=== PATIENT | female | born 1990 | race Caucasian/White ===

== ENCOUNTER 2016-11-16 20:11 | Emergency (ER) | payer MEDICAID, OTHER ==
[~2016-11-16] VITALS: Ht 160 cm; Wt 74.8 kg
[~2016-11-16 20:11] MED LIST: FERROUS SULFAT325 MG PO; MOTRIN600 MG PO; PRENATAL VITAMI1 T10 PO; ZOFRAN ODT4 MG PO
[2016-11-16 20:29] VITALS: BP 109/71
--- NOTE | 2016-11-16 21:40 | NUR ---
AMBULATED TO ER BED 6
--- NOTE | 2016-11-16 21:51 | NUR ---
PATIENT PRESENTS TO ED WITH LEFT SIDE ABD PAIN . PT DENIES N/V/D; SKIN IS PINK/WARM/DRY; AAOX4 WITH EVEN AND STEADY GAIT; LUNGS CLEAR BL; HR EVEN AND REGULAR; PT DENIES ANY FEVER, CP, SOB, OR COUGH AT THIS TIME; PATIENT STATES PAIN OF 2/10 AT THIS TIME; VSS; PATIENT POSITIONED FOR COMFORT; HOB ELEVATED; BEDRAILS UP X2; BED DOWN. ER MD MADE AWARE OF PT STATUS.
--- NOTE | 2016-11-16 22:57 | NUR ---
Patient discharged with v/s stable. Written and verbal after care instructions given and explained. Patient verbalized understanding. Ambulatory with steady gait. All questions addressed prior to discharge. Advised to follow up with PMD.
[2016-11-16 22:58] VITALS: BP 109/71
== END 2016-11-16 22:58 | disposition home or self-care (01) ==
LOC: MED 20:11
DX: K21.9 Gastro-esophageal reflux disease without esophagitis (principal)

== ENCOUNTER 2017-12-27 19:58 | Emergency (ER) | payer SELFPAY ==
[~2017-12-27] VITALS: Ht 165.1 cm; Wt 76.7 kg
[~2017-12-27 19:58] MED LIST changes: +FERR325E14 PO; -FERROUS SULFAT325 MG PO; +IBUP-2213 PO; -MOTRIN600 MG PO; +PREN-385 PO; -PRENATAL VITAMI1 T10 PO; -ZOFRAN ODT4 MG PO
[2017-12-27 20:20] VITALS: BP 112/76
--- NOTE | 2017-12-27 20:30 | NUR ---
Pt presents to ED after dog attack. Pt states she was walking near home with her child when a pit bull saw them and charged at the Pt. Pt tried to run but dog cough her and bit her on the right thiegh. 1cm puncte noted. No bleeding or discharge noted. VSS. Pain 11/27. ER MD aware. Continue to monitor.
--- NOTE | 2017-12-27 20:31 | NUR ---
PT AMBULATED TO ER BED 01
[2017-12-27] MEDS ORDERED: AMOXIL/CLAVULANATE 875/125 MG 1 TAB ONE (21:27)
[2017-12-27] MEDS: AMOXIL/CLAVULANATE 875/125 MG 1 TAB PO ONE (21:34)
[2017-12-27 22:05] VITALS: BP 112/76
--- NOTE | 2017-12-27 22:05 | NUR ---
Patient discharged with v/s stable. Written and verbal after care instructions given and explained. Patient alert, oriented and verbalized understanding of instructions. Ambulatory with steady gait. All questions addressed prior to discharge. ID band removed. Patient advised to follow up with PMD. Rx of Augmentin and Bacitracin given. Patient educated on indication of medication including possible reaction and side effects. Opportunity to ask questions provided and answered.
--- NOTE | 2017-12-27 22:40 | NUR ---
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
== END 2017-12-27 22:05 | disposition home or self-care (01) ==
LOC: MED 19:58
DX: S71.131A Puncture wound without foreign body, right thigh, initial encounter (principal); Z79.899 Other long term (current) drug therapy; W54.0XXA Bitten by dog, initial encounter; Y93.89 Activity, other specified; Y92.89 Other specified places as the place of occurrence of the external cause; Y99.8 Other external cause status
CPT/HCPCS: 90471; 90715; 99283

== ENCOUNTER 2018-04-11 19:54 | Emergency (ER) | payer MEDICAID, OTHER ==
[~2018-04-11] VITALS: Ht 165.1 cm; Wt 73.9 kg
[2018-04-11 20:06] VITALS: BP 122/71
--- NOTE | 2018-04-11 20:10 | NUR ---
TO LOBBY A/W BED, VILMA SALAZAR, RACHEL NOTED
--- NOTE | 2018-04-11 20:31 | NUR ---
PT TAKEN TO BED 4
--- NOTE | 2018-04-11 20:35 | NUR ---
27/F CAME IN ED WITH FAMILY, C/O 04/26 INTERMITTENT CRAMPING LOWER ABD PAIN, NONRADIATING, EXACERBATED BY ACTIVITY/WALKING, RELIEVED BY REST. LMP 01/09/18, PT IS 8 WEEKS . PT REPORTS N/V. PT DENIES ABNORMAL VAGINAL BLEEDING OR CLOTS, PT REPORTS REDDISH DISCOLORED URINE. PT DENIES ANY FEVER, CP, SOB, OR COUGH AT THIS TIME; PATIENT POSITIONED FOR COMFORT; HOB ELEVATED; BEDRAILS UP X2; BED DOWN.
[2018-04-11] MEDS ORDERED: ACETAMINOPHEN EXTRA STRENGTH 500 MG TAB PO ONE (20:50)
--- NOTE | 2018-04-11 20:55 | NUR ---
PT TO US VIA W/C IN STABLE CONDITION
--- NOTE | 2018-04-11 21:27 | NUR ---
PT RETURN FROM ULTRA SOUND
[2018-04-11 21:52] LABS: APPEARANCE,URINE CLEAR (CLEAR); BILIRUBIN,URINE 1+ (NEGATIVE); BLOOD, URINE TRACE-I (NEGATIVE); COLOR,URINE YELLOW (YELLOW); LEUKOCYTE ESTERASE ,URINE NEGATIVE (NEGATIVE); NITRITE, URINE NEGATIVE (NEGATIVE); UGLUCOSE NEGATIVE (NEGATIVE)
[2018-04-11 22:14] LABS: BASOPHILS % (AUTO) 0.5 % (0.0-2.0); EOSINOPHILS # (AUTO) 0.1 K/uL (0-0.4); EOSINOPHILS % (AUTO) 0.7 % (0.0-4.0); HEMATOCRIT 39.4 % (36-48); HEMOGLOBIN 13.4 g/dL (12.0-16.0); LYMPHOCYTES # (AUTO) 1.8 K/uL (2.5-16.5); LYMPHOCYTES % (AUTO) 20.2 % (20.5-51.1); MEAN CORPUSCULAR HEMOGLOBIN 29 pg (27-31); MEAN CORPUSCULAR HGB CONC 34 g/dL (33-37); MEAN CORPUSCULAR VOLUME 86.3 fL (80-94); MONOCYTES # (AUTO) 0.5 K/uL (0.8-1.0); MONOCYTES % (AUTO) 5.2 % (1.7-9.3); NEUTROPHILS # (AUTO) 6.5 K/uL (1.8-7.7); NEUTROPHILS % (AUTO) 73.4 % (42.2-75.2); PLATELET COUNT (AUTO) 221 K/uL (140-450); RED BLOOD CELL COUNT(AUTO) 4.57 MIL/uL (4.20-5.40); RED CELL DISTRIBUTION WIDTH 13.1 % (11.6-13.7); WHITE BLOOD COUNT (AUTO) 8.9 K/uL (4.8-10.8)
--- NOTE | 2018-04-11 22:40 | NUR ---
PT RESTING IN BED, PT REPORTS DECREASED 4/10 LOWER ABD PAIN AT THIS TIME, DENIES N/V. ALL NEEDS MET AT THIS TIME.
--- NOTE | 2018-04-11 22:49 | NUR ---
EMT AKI CHAPERONED DR KELLY FOR PELVIC AT BEDSIDE
[2018-04-12 00:43] LABS: CARBON DIOXIDE 25.5 mmol/L (21-32); CREATININE 0.7 mg/dL (0.6-1.3); POTASSIUM 3.5 mmol/L (3.5-5.1)
[2018-04-12 00:49] LABS: ALBUMIN 3.6 g/dL (3.4-5.0); TOTAL BILIRUBIN 0.6 mg/dL (0.0-1.0)
[2018-04-12] MEDS ORDERED: FLUCONAZOLE 100 MG TAB PO ONE (00:50)
[2018-04-12] MEDS ORDERED: FLUCONAZOLE 100 MG TAB ONE ×2 (01:00→01:03)
[2018-04-12 01:15] VITALS: BP 104/70
[2018-04-12 01:15] LABS: RBC,URINE 0-5 (RARE) /HPF (0-5); URINE AMORPHOUS URATE 4+ /HPF (None Seen); WBC,URINE 0-5 (RARE) /HPF (0-5)
--- NOTE | 2018-04-12 01:15 | NUR ---
Patient discharged with v/s stable. Written and verbal after care instructions given and explained. Patient alert, oriented and verbalized understanding of instructions. Ambulatory with steady gait. All questions addressed prior to discharge. ID band removed. Patient advised to follow up with PMD. Rx of REGLAN given. Patient educated on indication of medication including possible reaction and side effects. Opportunity to ask questions provided and answered.
== END 2018-04-12 01:15 | disposition home or self-care (01) ==
LOC: MED 19:54
DX: O21.9 Vomiting of pregnancy, unspecified (principal); O98.811 Other maternal infectious and parasitic diseases complicating pregnancy, first trimester; O20.8 Other hemorrhage in early pregnancy; Z3A.10 10 weeks gestation of pregnancy; Z79.899 Other long term (current) drug therapy
CPT/HCPCS: 36415; 76817; 80053; 81001; 81025; 84702; 85025; 86900; 86901; 87210; 99285; Q0092

== ENCOUNTER 2018-08-10 17:36 | Inpatient (IN) | payer OTHER ==
[~2018-08-10] VITALS: Ht 167.6 cm; Wt 72.6 kg
[2018-08-10] MEDS ORDERED: PNV1TABL8 PO (17:51)
[2018-08-10 18:11] VITALS: BP 103/67
[2018-08-10 19:28] LABS: APPEARANCE,URINE HAZY (CLEAR); BLOOD, URINE TRACE (NEGATIVE); COLOR,URINE AMBER (YELLOW); PH,URINE 6.5 (5.0-9.0); UGLUCOSE NEGATIVE (NEGATIVE)
[2018-08-10 19:29] LABS: BILIRUBIN,URINE NEGATIVE (NEGATIVE); LEUKOCYTE ESTERASE ,URINE NEGATIVE (NEGATIVE); NITRITE, URINE NEGATIVE (NEGATIVE)
[2018-08-10 19:37] LABS: RBC,URINE 11-20 (MOD) /HPF (0-5); WBC,URINE 20-60 /HPF (0-5)
[2018-08-10] MEDS ORDERED: DIPHENOXYLATE /ATROPINE 2.5 MG TAB PO PRN (20:10)
[2018-08-10] MEDS: LACTATED RINGERS 1,000 ML IV SCH (20:28)
[2018-08-10] MEDS: ONDANSETRON 4 MG/2 ML VIAL IVP PRN (20:29)
[2018-08-10] MEDS ORDERED: ONDANSETRON 4 MG/2 ML VIAL ONE (20:30)
[2018-08-10] MEDS ORDERED: DIPHENOXYLATE /ATROPINE 2.5 MG TAB ONE (20:47)
[2018-08-10 20:56] LABS: BASOPHILS % (AUTO) 0.2 % (0.0-2.0); EOSINOPHILS % (AUTO) 0.3 % (0.0-4.0); HEMATOCRIT 38.8 % (36-48); HEMOGLOBIN 13.2 g/dL (12.0-16.0); LYMPHOCYTES # (AUTO) 0.6 K/uL (2.5-16.5); MEAN CORPUSCULAR HEMOGLOBIN 31 pg (27-31); MEAN CORPUSCULAR HGB CONC 34 g/dL (33-37); MEAN CORPUSCULAR VOLUME 90.2 fL (80-94); MONOCYTES # (AUTO) 0.5 K/uL (0.8-1.0); MONOCYTES % (AUTO) 6.5 % (1.7-9.3); NEUTROPHILS # (AUTO) 5.9 K/uL (1.8-7.7); PLATELET COUNT (AUTO) 175 K/uL (140-450); RED CELL DISTRIBUTION WIDTH 14.3 % (11.6-13.7)
[2018-08-10 21:10] LABS: ANION GAP 12.2 (8-16); CARBON DIOXIDE 25.2 mmol/L (21-32); CREATININE 0.5 mg/dL (0.6-1.3); POTASSIUM 3.4 mmol/L (3.5-5.1)
[2018-08-10 21:14] LABS: TOTAL BILIRUBIN 0.7 mg/dL (0.0-1.0)
[2018-08-11] MEDS: LACTATED RINGERS 1,000 ML IV SCH ×2 (01:41→12:37)
--- NOTE | 2018-08-11 08:22 | NUR ---
PATIENT HAS BEEN SCREENED AND CATEGORIZED LOW NUTRITION RISK. PATIENT WILL BE SEEN WITHIN 7 DAYS OF ADMISSION. 08/17/[address]
[2018-08-11] MEDS ORDERED: ONDANSETRON 4 MG/2 ML VIAL ONE (13:52)
[2018-08-11] MEDS: ONDANSETRON 4 MG/2 ML VIAL IVP PRN (13:52)
== END 2018-08-11 14:21 | disposition home or self-care (01) | DRG 566 ==
LOC: MLD 17:36 → OBSVTOIN 08-11 09:53
PROVIDERS: ADMIT Obstetrics & Gynecology; ATTEND Obstetrics & Gynecology
DX: O9A.212 Injury, poisoning and certain other consequences of external causes complicating pregnancy, second trimester (principal); K52.1 Toxic gastroenteritis and colitis; T62.91XA Toxic effect of unspecified noxious substance eaten as food, accidental (unintentional), initial encounter; Y92.89 Other specified places as the place of occurrence of the external cause; Z3A.25 25 weeks gestation of pregnancy
CPT/HCPCS: G0378 ×16; 36415; 76700; 76805; 80053; 81001; 82150; 83690; 85025; 87086; J2405; J7120; Q0092

== ENCOUNTER 2021-04-21 12:57 | Emergency (ER) | payer OTHER ==
[~2021-04-21] VITALS: Ht 165.1 cm; Wt 78.9 kg
[2021-04-21 12:59] VITALS: BP 104/57
--- NOTE | 2021-04-21 13:30 | NUR ---
Patient returned to ED lobby after completion of x-ray.
--- NOTE | 2021-04-21 13:33 | NUR ---
Patient transferred to bed 8 via wheelchair by charge nurse. RN evaluating the patient at bedside.
--- NOTE | 2021-04-21 13:37 | NUR ---
MALICK WOODY AT BEDSIDE EVALUATING PATIENT
[2021-04-21] MEDS ORDERED: KETOROLAC 30 MG/ML VIAL IM ONE (13:40)
[2021-04-21] MEDS ORDERED: IBUP-2213 PO (13:49)
[2021-04-21 14:08] VITALS: BP 104/57
== END 2021-04-21 14:03 | disposition home or self-care (01) ==
LOC: MED 12:57
DX: S93.506A Unspecified sprain of unspecified lesser toe(s), initial encounter (principal); W18.39XA Other fall on same level, initial encounter; Y93.89 Activity, other specified; Y92.89 Other specified places as the place of occurrence of the external cause; Y99.8 Other external cause status
CPT/HCPCS: 73630; 81025; 96372; 99283; J1885

== ENCOUNTER 2022-11-03 01:45 | Emergency (ER) | payer OTHER ==
[~2022-11-03] VITALS: Ht 162.6 cm; Wt 69.9 kg
[~2022-11-03 01:45] MED LIST changes: -FERR325E14 PO; -PREN-385 PO
[2022-11-03 01:58] VITALS: BP 125/57
[2022-11-03] MEDS ORDERED: KETOROLAC 30 MG/ML VIAL IVP ONE (02:10)
[2022-11-03] MEDS ORDERED: NACL 0.9% 1,000 ML IV ONE (02:10)
[2022-11-03] MEDS ORDERED: ONDANSETRON 4 MG/2 ML VIAL IVP ONE (02:10)
[2022-11-03 02:30] VITALS: BP 121/75
[2022-11-03 02:33] LABS: BASOPHILS # (AUTO) 0.2 K/uL (0.00-0.22); BASOPHILS % (AUTO) 1.8 % (0.0-2.0); EOSINOPHILS # (AUTO) 0.1 K/uL (0-0.4); HEMATOCRIT 40.9 % (36-48); HEMOGLOBIN 13.8 g/dL (12.0-16.0); LYMPHOCYTES # (AUTO) 2.7 K/uL (2.5-16.5); MEAN CORPUSCULAR HEMOGLOBIN 29 pg (27-31); MEAN CORPUSCULAR HGB CONC 34 g/dL (33-37); MEAN CORPUSCULAR VOLUME 86.3 fL (80-94); MONOCYTES # (AUTO) 0.7 K/uL (0.8-1.0); MONOCYTES % (AUTO) 7.4 % (1.7-9.3); NEUTROPHILS # (AUTO) 5.5 K/uL (1.8-7.7); NEUTROPHILS % (AUTO) 59.8 % (42.2-75.2); PLATELET COUNT (AUTO) 236 K/uL (140-450); RED BLOOD CELL COUNT(AUTO) 4.74 MIL/uL (4.20-5.40); RED CELL DISTRIBUTION WIDTH 13.6 % (11.6-13.7); WHITE BLOOD COUNT (AUTO) 9.2 K/uL (4.8-10.8)
[2022-11-03 02:33] LABS: APPEARANCE,URINE CLEAR (CLEAR); BILIRUBIN,URINE NEGATIVE (NEGATIVE); BLOOD, URINE 1+ (NEGATIVE); COLOR,URINE YELLOW (YELLOW); LEUKOCYTE ESTERASE ,URINE NEGATIVE (NEGATIVE); NITRITE, URINE NEGATIVE (NEGATIVE); UGLUCOSE NEGATIVE (NEGATIVE)
--- NOTE | 2022-11-03 02:38 | NUR ---
Toradol given for back pain
[2022-11-03 02:39] LABS: RBC,URINE 0-5 /HPF (0-5)
[2022-11-03 02:41] LABS: WBC,URINE 0-5 /HPF (0-5)
[2022-11-03 03:16] LABS: ALBUMIN 3.9 g/dL (3.4-5.0); ANION GAP 12.1 (8-16); CARBON DIOXIDE 26.2 mmol/L (21-32); CREATININE 0.6 mg/dL (0.6-1.3); POTASSIUM 3.3 mmol/L (3.5-5.1); TOTAL BILIRUBIN 0.3 mg/dL (0.0-1.0)
[2022-11-03] MEDS ORDERED: cefTRIAXone 1,000 MG VIAL ONE (03:29)
--- NOTE | 2022-11-03 03:38 | NUR ---
Rocephin IVPB running as ordered
[2022-11-03] MEDS ORDERED: NAPR-54 PO (03:47)
[2022-11-03] MEDS ORDERED: NITR100C7 PO (03:47)
--- NOTE | 2022-11-03 03:49 | NUR ---
Dr. Ruvalcaba examining patient.
== END 2022-11-03 04:06 | disposition home or self-care (01) ==
LOC: MED 01:45
DX: N39.0 Urinary tract infection, site not specified (principal); M54.50 Low back pain, unspecified; R11.2 Nausea with vomiting, unspecified; Z79.899 Other long term (current) drug therapy; Z98.890 Other specified postprocedural states
CPT/HCPCS: 36415; 80053; 81001; 81025; 83605; 85025; 87040; 87086; 96365; 96375; 99284; J0696; J1885; J2405

== ENCOUNTER 2022-11-27 07:56 | Emergency (ER) | payer OTHER ==
[~2022-11-27] VITALS: Ht 167.6 cm; Wt 89.4 kg
[~2022-11-27 07:56] MED LIST changes: +NAPR-54 PO; +NITR100C7 PO
[2022-11-27 08:00] VITALS: BP 119/72
--- NOTE | 2022-11-27 08:07 | NUR ---
32/F WALKED IN C/O RLQ ABD PAIN X1 WK ACCOMPANIED BY NAUSEA. DENIES VOMITING OR DIARRHEA. AAO4, AMBULATORY, AFEBRILE AT TRIAGE. URINE COLLECTED. ON COUNTER WEIGHER. NO ACUTE DISTRESS NOTED. NKA PMH: DENIES
[2022-11-27] MEDS ORDERED: NACL 0.9% 2,000 ML IV ONE (08:45)
[2022-11-27 09:00] LABS: BASOPHILS % (AUTO) 0.3 % (0.0-2.0); EOSINOPHILS # (AUTO) 0.2 K/uL (0-0.4); EOSINOPHILS % (AUTO) 2.5 % (0.0-4.0); HEMATOCRIT 42.1 % (36-48); LYMPHOCYTES # (AUTO) 1.9 K/uL (2.5-16.5); LYMPHOCYTES % (AUTO) 27.9 % (20.5-51.1); MEAN CORPUSCULAR HEMOGLOBIN 29 pg (27-31); MEAN CORPUSCULAR HGB CONC 33 g/dL (33-37); MONOCYTES # (AUTO) 0.5 K/uL (0.8-1.0); MONOCYTES % (AUTO) 7.7 % (1.7-9.3); NEUTROPHILS # (AUTO) 4.1 K/uL (1.8-7.7); NEUTROPHILS % (AUTO) 61.6 % (42.2-75.2); PLATELET COUNT (AUTO) 262 K/uL (140-450); RED BLOOD CELL COUNT(AUTO) 4.84 MIL/uL (4.20-5.40); RED CELL DISTRIBUTION WIDTH 13.5 % (11.6-13.7); WHITE BLOOD COUNT (AUTO) 6.7 K/uL (4.8-10.8)
[2022-11-27 09:04] LABS: APPEARANCE,URINE CLEAR (CLEAR); BILIRUBIN,URINE NEGATIVE (NEGATIVE); BLOOD, URINE SMALL (NEGATIVE); COLOR,URINE YELLOW (YELLOW); LEUKOCYTE ESTERASE ,URINE TRACE (NEGATIVE); NITRITE, URINE NEGATIVE (NEGATIVE); UGLUCOSE NEGATIVE (NEGATIVE)
[2022-11-27 09:16] LABS: RBC,URINE 0-5 /HPF (0-5)
[2022-11-27 09:31] LABS: ALBUMIN 4.1 g/dL (3.4-5.0); ANION GAP 12.4 (8-16); CARBON DIOXIDE 27.2 mmol/L (21-32); CREATININE 0.7 mg/dL (0.6-1.3); POTASSIUM 3.6 mmol/L (3.5-5.1); TOTAL BILIRUBIN 0.5 mg/dL (0.0-1.0)
[2022-11-27 11:00] VITALS: BP 131/82
[2022-11-27] MEDS ORDERED: CEPH-588 PO (11:41)
[2022-11-27] MEDS ORDERED: IBUP-2213 PO (11:41)
== END 2022-11-27 11:55 | disposition home or self-care (01) ==
LOC: MED 07:56
DX: N39.0 Urinary tract infection, site not specified (principal); N83.201 Unspecified ovarian cyst, right side
CPT/HCPCS: 36415; 74177; 76830; 80053; 81001; 81025; 83690; 85025; 87086; 96360; 99285; Q0092; Q9967; J7030

== ENCOUNTER 2022-11-29 15:01 | Emergency (ER) | payer OTHER ==
[~2022-11-29] VITALS: Ht 172.7 cm; Wt 89.4 kg
[~2022-11-29 15:01] MED LIST changes: +CEPH-588 PO
[2022-11-29 15:23] VITALS: BP 134/85
--- NOTE | 2022-11-29 15:44 | NUR ---
PT AMB TO BED 2
--- NOTE | 2022-11-29 15:55 | NUR ---
32F presents to ED with c/o right sided abd pain [id number]. Pt reports a constant, pressure like pain to right abd radiating to umbulibus and right flank. Pt reports being seen 2 days ago for same s/s, Rx of ibuprofen and Keflex given with no relief. Pt reports pain worsens upon ambulation, mild pain relief when laying down. Pt reports onset of nausea when eating. Pt changed into gown, bed at lowest position, side rails x1.
--- NOTE | 2022-11-29 16:33 | NUR ---
LAB AT BEDSIDE.
--- NOTE | 2022-11-29 16:36 | NUR ---
ULTRASOUND AT BEDSIDE.
[2022-11-29 16:48] LABS: APPEARANCE,URINE CLEAR (CLEAR); BILIRUBIN,URINE NEGATIVE (NEGATIVE); BLOOD, URINE SMALL (NEGATIVE); COLOR,URINE YELLOW (YELLOW); LEUKOCYTE ESTERASE ,URINE NEGATIVE (NEGATIVE); NITRITE, URINE NEGATIVE (NEGATIVE); UGLUCOSE NEGATIVE (NEGATIVE)
[2022-11-29 16:53] LABS: BASOPHILS % (AUTO) 0.6 % (0.0-2.0); EOSINOPHILS # (AUTO) 0.1 K/uL (0-0.4); EOSINOPHILS % (AUTO) 1.7 % (0.0-4.0); HEMOGLOBIN 13.9 g/dL (12.0-16.0); LYMPHOCYTES # (AUTO) 1.5 K/uL (2.5-16.5); LYMPHOCYTES % (AUTO) 24.2 % (20.5-51.1); MEAN CORPUSCULAR HEMOGLOBIN 30 pg (27-31); MEAN CORPUSCULAR HGB CONC 34 g/dL (33-37); MEAN CORPUSCULAR VOLUME 87.1 fL (80-94); MONOCYTES # (AUTO) 0.4 K/uL (0.8-1.0); MONOCYTES % (AUTO) 5.9 % (1.7-9.3); NEUTROPHILS # (AUTO) 4.2 K/uL (1.8-7.7); NEUTROPHILS % (AUTO) 67.6 % (42.2-75.2); PLATELET COUNT (AUTO) 233 K/uL (140-450); RED BLOOD CELL COUNT(AUTO) 4.71 MIL/uL (4.20-5.40); RED CELL DISTRIBUTION WIDTH 13.1 % (11.6-13.7); WHITE BLOOD COUNT (AUTO) 6.2 K/uL (4.8-10.8)
[2022-11-29 17:12] LABS: RBC,URINE 0-5 /HPF (0-5); WBC,URINE NONE SEEN /HPF (0-5)
[2022-11-29 17:15] LABS: ALBUMIN 4.1 g/dL (3.4-5.0); ANION GAP 14.2 (8-16); CARBON DIOXIDE 26.8 mmol/L (21-32); CREATININE 0.7 mg/dL (0.6-1.3); TOTAL BILIRUBIN 0.7 mg/dL (0.0-1.0)
[2022-11-29 17:30] VITALS: BP 113/76
[2022-11-29] MEDS ORDERED: FAMO-90 PO (18:39)
--- NOTE | 2022-11-29 18:47 | NUR ---
Patient discharged with v/s stable. Written and verbal after care instructions about Peptic ulcer and abdominal pain given and explained. Patient alert, oriented and verbalized understanding of instructions. Ambulatory with steady gait. All questions addressed prior to discharge. ID band removed. Patient advised to follow up with PMD. Rx of Pepcid given. Patient educated on indication of medication including possible reaction and side effects. Opportunity to ask questions provided and answered.
== END 2022-11-29 18:47 | disposition home or self-care (01) ==
LOC: MED 15:01
DX: R10.11 Right upper quadrant pain (principal); R11.0 Nausea; Z79.899 Other long term (current) drug therapy
CPT/HCPCS: 36415; 76705; 80053; 81001; 81025; 83690; 85025; 99285; Q0092; 99284